=== PATIENT | male | born 1960 | race Caucasian/White ===

== ENCOUNTER 2018-02-08 10:30 | Observation (INO) | payer OTHER, SELFPAY ==
--- NOTE | 2018-02-08 11:32 | ER ---
Nurse's Notes [facility] Name: Ron Aguillon Age: 57 yrs Sex: Male : 1960 Arrival Date: 02/08/2018 Time: 10:32 Bed Waiting Private MD: Ike Dhillon R Diagnosis: Cellulitis of left lower limb;Cellulitis of right lower limb ED Course: 02/08 10:32 Patient arrived in ED. as 10:33 Ike Dhillon MD is Private Physician. as 11:31 Ike Dhillon MD is Hospitalizing Provider. ph Administered Medications: No medications were administered Outcome: 11:31 Decision to Hospitalize by Provider. ph 11:31 Patient left the ED. ph Signatures: Carol Ponce Patricia, RN RN ph
[2018-02-08 13:20] LABS: Absolute Lymphocytes (CBC) 1.7 K/uL (0.7-4.9); Absolute Monocytes 0.7 K/uL (0.1-1.3); Absolute Neutrophil 4.4 K/uL (1.8-8.0); Basophils % 0.8 % (0-1.3); Eosinophils % 2.4 % (0-4.4); Hematocrit 43.8 % (39.6-49.0); Lymphocytes % 24.1 % (15.3-44.8); MCH 24.1 pg (27.0-35.0); MCV 77.1 fL (80-100); MPV 7.4 fL (7.6-11.3); Monocytes % 9.9 % (3.3-12.3); RBC Red Blood Cell Count 5.68 M/uL (4.33-5.43)
[2018-02-08 13:31] LABS: Urine Appearance CLEAR; Urine Bilirubin NEGATIVE (NEG); Urine Blood NEGATIVE (NEG); Urine Color YELLOW; Urine Glucose NEGATIVE (NEG); Urine Protein NEGATIVE (NEG); Urine Specific Gravity 1.015 (1.005-1.030); Urine Urobilinogen 0.2 mg/dL (0.2-1.0)
[2018-02-08 13:40] LABS: ALT/SGPT 36 U/L (12-78); AST/SGOT 23 U/L (15-37); Albumin 3.6 g/dL (3.4-5.0); Alkaline Phosphatase 68 U/L (45-117); BUN Blood Urea Nitrogen 11 mg/dL (7-18); Bicarbonate 31 mmol/L (21-32); Bilirubin Total 0.3 mg/dL (0.2-1.0); Glucose Level 84 mg/dL (74-106); NT PRO-BNP 381 pg/mL (<125); Potassium 3.9 mmol/L (3.5-5.1); Protein, Total 7.8 g/dL (6.4-8.2); Sodium Level 140 mmol/L (136-145)
[2018-02-08 13:40] LABS: Urine Bacteria NONE SEEN /HPF (NONE SEEN); Urine RBC NONE SEEN /HPF (NONE SEEN)
[2018-02-08 13:41] LABS: Urine Culture Reflex Order NOT NEEDED
[2018-02-08 13:43] LABS: Urine White Blood Cell Casts OK
[2018-02-08 13:44] LABS: Anisocytosis 1+; Blood Morphology Comment NOTED (NOT SEEN); Platelet Estimate ADEQ
[2018-02-08 14:58] VITALS: BMI 32.2
--- NOTE | 2018-02-08 15:46 | ECHO ---
HEIGHT: 5 ft 8 in WEIGHT: 212 lb 0 oz DATE OF STUDY: 02/08/[address]: Ike Dhillon MD 2-DIMENSIONAL: YES M.MODE: YES DOPPLER: YES COLOR FLOW: YES TDS: YES PORTABLE: NO DEFINITY: NO BUBBLE STUDY: NO DIAGNOSIS: CELLULITUS CARDIAC HISTORY: CATHERIZATION: NO SURGERY: NO PROSTHETIC VALVE: NO PACEMAKER: NO MEASUREMENTS (cm) DIASTOLIC (NORMALS) SYSTOLIC (NORMALS) IVSd 1.1 (0.6-1.2) LA Diam 3.1 (1.9-4.0) LVEF 70% LVIDd 4.4 (3.5-5.7) LVIDs 2.7 (2.0-3.5) %FS 40% LVPWd 1.2 (0.6-1.2) Ao Diam 3.4 (2.0-3.7) 2 DIMENSIONAL ASSESSMENT: RIGHT ATRIUM: NORMAL LEFT ATRIUM: NORMAL RIGHT VENTRICLE: NORMAL LEFT VENTRICLE: NORMAL TRICUSPID VALVE: NORMAL MITRAL VALVE: NORMAL PULMONIC VALVE: NORMAL AORTIC VALVE: NORMAL PERICARDIAL EFFUSION: NONE AORTIC ROOT: NORMAL LEFT VENTRICULAR WALL MOTION: NORMAL DOPPLER/COLOR FLOW: MILD TRICUSPID REGURGITATION. COMMENTS: MILD TRICUSPID REGURGITATION, NORMAL VARIANT. NORMAL LEFT VENTRICULAR SIZE AND FUNCTION. NO WALL MOTION ABNORMALITY. NO EFFUSION. TECHNOLOGIST: Shaq IGLESIAS
[2018-02-08] MEDS ORDERED: PNEUMOCOCCAL VACCINE 0.5 ML IMVAC ONE (16:00)
[2018-02-08] MEDS: ALBUTEROL 2.5 MG/3 ML NEB SOL NEB SCH ×2 (16:00→20:33)
[2018-02-08] MEDS: FUROSEMIDE 40 MG/4 ML VIAL IV SCH (20:11)
[2018-02-08] MEDS ORDERED: CEFTRIAXONE 1 GM/NS 50 ML 1 GM/50 ML BAG IV ONE (22:04)
[2018-02-08] MEDS ORDERED: CEFTRIAXONE/SWI 1gm 1 GM/10 ML SYR IV SCH (23:00)
[2018-02-08] MEDS ORDERED: CEFTRIAXONE/SWI 1gm 1 GM/10 ML SYR IV ONE (23:00)
[2018-02-09] MEDS: PANTOPRAZOLE 40MG TABLET PO SCH (06:20)
[2018-02-09] MEDS: ALBUTEROL 2.5 MG/3 ML NEB SOL NEB SCH ×4 (07:50→20:31)
[2018-02-09] MEDS ORDERED: POTASSIUM CL SA 10 MEQ TAB PO ONE (08:22)
[2018-02-09] MEDS: POTASSIUM CL SA 10 MEQ TAB PO SCH (08:30)
[2018-02-09] MEDS: HYDRALAZINE HCL 25 MG TABLET PO SCH ×4 (08:30→22:11)
[2018-02-09] MEDS: ASPIRIN 81 MG CHEWABLE TABLET PO SCH (08:30)
--- NOTE | 2018-02-09 10:44 | RAD REPORT ---
EXAM DESCRIPTION: USExtrem Venous W Compress Bil02/09/2018 9:54 am CLINICAL HISTORY: Bilateral leg swelling COMPARISON: none FINDINGS: The common femoral, superficial femoral, popliteal and posterior tibial veins bilaterally are compressible and demonstrate augmentation. Doppler demonstrates good flow. A 1.8 centimeter Todd's cyst is present within the right knee IMPRESSION: No evidence of deep venous thrombosis involving either lower extremity. 1.8 centimeter right Todd's cyst
[2018-02-09] MEDS: FUROSEMIDE 40 MG/4 ML VIAL IV SCH ×2 (10:45→21:00)
[2018-02-09] MEDS ORDERED: ENOXAPARIN 30 MG/0.3 ML SQ ONE (18:50)
[2018-02-09 20:36] VITALS: O2SAT 96
--- NOTE | 2018-02-09 22:48 | HP ---
Date of Admission: 02/08/2018 Chief Complaint: Swelling of the legs and redness of the legs. History Of Present Illness: A 57-year-old male who was seen 2 days prior to admission with swelling of the legs. He was given a higher dose of Lasix and was re-checked on the day of admission when he was found to have increased swelling as well as redness compatible with bilateral leg cellulitis. Th e patient is admitted as he is not responding to oral furosemide. The patient denied any history of chest pain. He has shortness of breath from COPD for which he is o n oxygen as well as Proventil. The patient has multiple medical problems that will be listed below. Past Medical History: Positive for history of smoking-related COPD, type 2 diabetes, history of gout . Past Surgical History: Positive for pyloric cyst removal. Family History: Positive for diabetes, stroke, and brain aneurysm. Personal History: Currently he does not smoke. He has no known allergies, however, he admits to sorin mathews on a regular basis. Review of Systems: The patient denied any chest pain. Physical Examination: General: Revealed a 57-year-old male with mild audible wheezing. Vital Signs: Normal. HEENT: Negative. Neck: Supple. JVD negative. Chest: Scattered wheezes. Heart: Regular. Abdomen: Soft, nontender. Extremities: Bilateral pedal edema with redness compatible with cellulitis. Laboratory Data: White count 7.1. Platelet count normal. Chem profile; BNP 381, hemoglobin A1c nor mal. Assessment: 1.Cellulitis, both legs. 2.Swelling, both legs. 3.History of diabetes. 4.Chronic obstructive pulmonary disease. Plan: The patient is receiving IV Lasix and he has lost fluid already. His redness is better. He i s on Rocephin, which will be continued. It is not clear why patient has so much swelling, possible d oes include cor pulmonale from COPD. However, he will be checked for venous disease of both legs. CECY/FAY Voice ID: [id number]
[2018-02-09] MEDS: CODEINE 30MG/APAP 300MG TAB PO PRN (23:05)
[2018-02-10] MEDS: PANTOPRAZOLE 40MG TABLET PO SCH (05:33)
[2018-02-10] MEDS: CODEINE 30MG/APAP 300MG TAB PO PRN (05:33)
[2018-02-10 06:48] LABS: BUN Blood Urea Nitrogen 13 mg/dL (7-18); Bicarbonate 33 mmol/L (21-32); Glucose Level 95 mg/dL (74-106); Potassium 3.8 mmol/L (3.5-5.1); Sodium Level 139 mmol/L (136-145)
[2018-02-10 07:07] LABS: Thyroid Stimulating Hormone 4.06 uIU/mL (0.360-3.740)
[2018-02-10] MEDS: ALBUTEROL 2.5 MG/3 ML NEB SOL NEB SCH (07:59)
[2018-02-10] MEDS: POTASSIUM CL SA 10 MEQ TAB PO SCH (09:21)
[2018-02-10] MEDS: ASPIRIN 81 MG CHEWABLE TABLET PO SCH (09:21)
[2018-02-10 09:55] VITALS: BP 121/59; TEMP 98
[2018-02-10] MEDS ORDERED: PNEUMOCOCCAL VACCINE 0.5 ML IMVAC ONE (11:00)
== END 2018-02-10 11:25 | disposition home or self-care (01) ==
LOC: ER 10:30 → ERHOLD 10:31 → 4TH 11:37
PROVIDERS: ADMIT Internal Medicine; ATTEND Internal Medicine
DX: L03.116 Cellulitis of left lower limb (principal); L03.115 Cellulitis of right lower limb; J44.9 Chronic obstructive pulmonary disease, unspecified; E11.9 Type 2 diabetes mellitus without complications; M10.9 Gout, unspecified; Z23 Encounter for immunization
CPT/HCPCS: 36415; 80048; 80053; 81001; 83036; 83880; 84439; 84443; 85025; 87070; 87205; 90670; 93306; 93970; 94640; G0009; G0378; J0696; J1650

== ENCOUNTER 2018-06-04 08:16 | Emergency (ER) | payer OTHER, SELFPAY ==
[2018-06-04 09:55] LABS: Absolute Monocytes 0.6 K/uL (0.1-1.3); Absolute Neutrophil 4.2 K/uL (1.8-8.0); Basophils % 0.4 % (0-1.3); Eosinophils % 3.8 % (0-4.4); Hematocrit 45.7 % (39.6-49.0); Lymphocytes % 16.4 % (15.3-44.8); MPV 7.5 fL (7.6-11.3); Monocytes % 10.5 % (3.3-12.3); RBC Red Blood Cell Count 4.78 M/uL (4.33-5.43)
--- NOTE | 2018-06-04 09:55 | RAD REPORT ---
EXAM DESCRIPTION: Fer Single View06/04/2018 8:59 am CLINICAL HISTORY: Fever/infection COMPARISON: none FINDINGS: The lungs appear clear of acute infiltrate. The heart is normal size IMPRESSION: No acute abnormalities displayed
[2018-06-04 09:57] LABS: Protime INR 1.03
[2018-06-04 10:15] LABS: ALT/SGPT 32 U/L (12-78); AST/SGOT 27 U/L (15-37); Albumin 4.1 g/dL (3.4-5.0); Alkaline Phosphatase 84 U/L (45-117); BUN Blood Urea Nitrogen 26 mg/dL (7-18); Bicarbonate 36 mmol/L (21-32); Bilirubin Direct < 0.1 mg/dL (0-0.2); Bilirubin Total 0.2 mg/dL (0.2-1.0); Creatine Phosphokinase 95 U/L (39-308); Glucose Level 103 mg/dL (74-106); Potassium 4.3 mmol/L (3.5-5.1); Protein, Total 8.5 g/dL (6.4-8.2); Sodium Level 136 mmol/L (136-145)
[2018-06-04] MEDS ORDERED: VANCOMYCIN 1 GM/250 ML BAG ONE (10:22)
[2018-06-04] MEDS ORDERED: IPRATROPIUM BROM 0.5MG/2.5ML ONE (10:53)
[2018-06-04] MEDS ORDERED: ALBUTEROL 2.5 MG/3 ML NEB SOL ONE (10:53)
[2018-06-04 11:04] LABS: Urine Blood NEGATIVE (NEG); Urine Glucose NEGATIVE (NEG); Urine Protein NEGATIVE (NEG); Urine Specific Gravity 1.005 (1.005-1.030)
--- NOTE | 2018-06-04 12:08 | ER ---
Nurse's Notes [facility] Name: Ron Aguillon Age: 57 yrs Sex: Male : 1960 Arrival Date: 06/04/2018 Time: 08:19 Bed 19 Private MD: Ike Dhillon R Diagnosis: Cellulitis of left lower limb;Cellulitis of right lower limb Presentation: 06/04 08:22 Presenting complaint: Patient states: "I have cellulitis on both my legs and I am being aa5 treated by and it's not getting better". Transition of care: patient was not received from another setting of care. Onset of symptoms was 2018. Risk Assessment: Do you want to hurt yourself or someone else? Patient reports no desire to harm self or others. Care prior to arrival: None. 08:22 Method Of Arrival: Ambulatory aa5 08:22 Acuity: KWAME 3 aa5 10:41 Initial Sepsis Screen: Does the patient meet any 2 criteria? No. Patient's initial tw2 sepsis screen is negative. Does the patient have a suspected source of infection? Yes: Skin breakdown/wound. Historical: - Allergies: 08:24 No Known Allergies; aa5 - PMHx: 08:24 Diabetes-diet controlled; COPD; aa5 - PSHx: 08:24 None; aa5 - Immunization history:: Adult Immunizations unknown. - Social history:: Smoking status: Patient uses tobacco products, denies chronic smoking, but will smoke occasionally. - Ebola Screening: : No symptoms or risks identified at this time. Screenin:32 Abuse screen: Denies threats or abuse. Nutritional screening: No deficits noted. tw2 Tuberculosis screening: No symptoms or risk factors identified. Fall Risk None identified. Assessment: 08:25 General: Appears in no apparent distress. unkempt, Behavior is calm, cooperative, tw2 appropriate for age, Smells of dirty animals. Pain: Denies pain. Neuro: Level of Consciousness is awake, alert, obeys commands, Oriented to person, place, time, situation. Cardiovascular: Heart tones S1 S2 Capillary refill < 3 seconds Patient's skin is warm and dry. Respiratory: Airway is patent Respiratory effort is even, unlabored, Respiratory pattern is regular, symmetrical, Breath sounds are clear bilaterally. GI: No signs and/or symptoms were reported involving the gastrointestinal system. Abdomen is round non-distended, Bowel sounds present X 4 quads. : No signs and/or symptoms were reported regarding the genitourinary system. EENT: No signs and/or symptoms were reported regarding the EENT system. Derm: redness and swelling noted to b/l LE, pt reports cellulitis that has not improved. Musculoskeletal: Range of motion: intact in all extremities. 09:30 Reassessment: Patient appears in no apparent distress at this time. No changes from tw2 previously documented assessment. Patient and/or family updated on plan of care and expected duration. Pain level reassessed. Patient is alert, oriented x 3, equal unlabored respirations, skin warm/dry/pink. 10:39 Reassessment: Patient appears in no apparent distress at this time. No changes from tw2 previously documented assessment. Patient and/or family updated on plan of care and expected duration. Pain level reassessed. Patient is alert, oriented x 3, equal unlabored respirations, skin warm/dry/pink. 11:35 Reassessment: Patient appears in no apparent distress at this time. No changes from tw2 previously documented assessment. Patient and/or family updated on plan of care and expected duration. Pain level reassessed. Patient is alert, oriented x 3, equal unlabored respirations, skin warm/dry/pink. 12:25 Reassessment: Patient appears in no apparent distress at this time. No changes from tw2 previously documented assessment. Patient and/or family updated on plan of care and expected duration. Pain level reassessed. Patient is alert, oriented x 3, equal unlabored respirations, skin warm/dry/pink. Vital Signs: 08:24 BP 147 / 87; Pulse 117; Resp 18 S; Temp 97.7(TE); Pulse Ox 91% on R/A; Weight 95.25 kg aa5 (R); Height 5 ft. 8 in. (172.72 cm) (R); Pain 3/10; 09:30 BP 139 / 69; Pulse 92; Resp 17; Pulse Ox 95% on R/A; tw2 10:38 BP 113 / 67; Pulse 94; Resp 17; Pulse Ox 95% on R/A; tw2 11:35 BP 123 / 64; Pulse 79; Resp 17; Pulse Ox 100% on R/A; tw2 12:24 BP 129 / 74; Pulse 92; Resp 17; Pulse Ox 100% on R/A; tw2 08:24 Body Mass Index 31.93 (95.25 kg, 172.72 cm) aa5 ED Course: 08:19 Patient arrived in ED. as 08:19 Ike Dhillon MD is Private Physician. as 08:20 [facility]int[facility]C [facility]. snw 08:20 Carson Liu MD is Attending Physician. snw 08:22 Arm band placed on. aa5 08:23 Triage completed. aa5 08:31 Kandice Camacho RN is Primary Nurse. tw2 08:32 Bed in low position. Call light in reach. Adult w/ patient. Pulse ox on. NIBP on. tw2 08:51 X-ray completed. Portable x-ray completed in exam room. Patient tolerated procedure jb2 well. 08:54 Chest Single View XRAY In Process Unspecified. EDMS 11:30 Inserted saline lock: 20 gauge in right antecubital area, using aseptic technique. tw2 ,using aseptic technique. per MARCEL De Anda Blood collected. 12:07 Ike Dhillon MD is Referral Physician. snw 12:25 No provider procedures requiring assistance completed. tw2 12:30 IV discontinued, intact, bleeding controlled, No redness/swelling at site. Pressure tw2 dressing applied. Administered Medications: 10:19 Drug: vancoMYCIN 1 grams Route: IVPB; Infused Over: 2 hrs; Site: right antecubital; tw2 12:24 Follow up: Response: No adverse reaction; IV Status: Completed infusion tw2 10:46 Drug: Albuterol - atroVENT (3:1) (2.5 mg - 0.5 mg) 3 ml Route: Nebulizer; tw2 12:24 Follow up: Response: No adverse reaction tw2 Outcome: 12:07 Discharge ordered by . snw 12:30 Discharged to home ambulatory, with family. tw2 12:30 Condition: stable 12:30 Discharge instructions given to patient, family, Instructed on discharge instructions, follow up and referral plans. medication usage, Demonstrated understanding of instructions, follow-up care, medications, Prescriptions given X 1. 12:30 Patient left the ED. tw2 Signatures: Dispatcher [employer] EDMS Nikky Cintron FNP-C GLOBAL CEO-Csnw Julian Durham jb2 Carol Ponce Audri, RN RN aa5 Kandice Camacho RN RN tw2
--- NOTE | 2018-06-04 12:08 | EDPHYS ---
Physician Documentation [facility] Name: Ron Aguillon Age: 57 yrs Sex: Male : 1960 Arrival Date: 06/04/2018 Time: 08:19 Bed 19 Private MD: Ike Dhillon R ED Physician Carson Liu HPI: 06/04 09:40 This 57 yrs old Male presents to ER via Ambulatory with complaints of Leg snw Swelling. 09:40 The patient presents with cellulitis of the bilateral lower extremities. Description: snw erythematous, warm. Onset: The symptoms/episode began/occurred gradually, and became persistent. Possible cause(s): unknown. Associated signs and symptoms: The patient has no apparent associated signs or symptoms. Severity of symptoms: At their worst the symptoms were moderate. The patient has experienced similar episodes in the past, multiple times. The patient has been recently seen by a physician: the patient's primary care provider, Dr. Dhillon. Pt just finished Keflex for similar s/s 2 weeks ago. Historical: - Allergies: 08:24 No Known Allergies; aa5 - PMHx: 08:24 Diabetes-diet controlled; COPD; aa5 - PSHx: 08:24 None; aa5 - Immunization history:: Adult Immunizations unknown. - Social history:: Smoking status: Patient uses tobacco products, denies chronic smoking, but will smoke occasionally. - Ebola Screening: : No symptoms or risks identified at this time. ROS: 09:36 Constitutional: Negative for fever, chills, and weight loss, Eyes: Negative for injury, snw pain, redness, and discharge, ENT: Negative for injury, pain, and discharge, Neck: Negative for injury, pain, and swelling, Cardiovascular: Negative for chest pain, palpitations, and edema, Respiratory: Negative for shortness of breath, cough, wheezing, and pleuritic chest pain, Abdomen/GI: Negative for abdominal pain, nausea, vomiting, diarrhea, and constipation, Back: Negative for injury and pain, : Negative for injury, bleeding, discharge, and swelling, MS/Extremity: Negative for injury and deformity, Neuro: Negative for headache, weakness, numbness, tingling, and seizure, Psych: Negative for depression, anxiety, suicide ideation, homicidal ideation, and hallucinations. 09:36 Skin: Positive for cellulitis, of the bilateral lower extremities. Exam: 09:23 Constitutional: This is a well developed, well nourished patient who is awake, alert, snw and in no acute distress. Head/Face: Normocephalic, atraumatic. Eyes: Pupils equal round and reactive to light, extra-ocular motions intact. Lids and lashes normal. Conjunctiva and sclera are non-icteric and not injected. Cornea within normal limits. Periorbital areas with no swelling, redness, or edema. ENT: Nares patent. No nasal discharge, no septal abnormalities noted. Tympanic membranes are normal and external auditory canals are clear. Oropharynx with no redness, swelling, or masses, exudates, or evidence of obstruction, uvula midline. Mucous membranes moist. Neck: Trachea midline, no thyromegaly or masses palpated, and no cervical lymphadenopathy. Supple, full range of motion without nuchal rigidity, or vertebral point tenderness. No Meningismus. Chest/axilla: Normal chest wall appearance and motion. Nontender with no deformity. No lesions are appreciated. Cardiovascular: Regular rate and rhythm with a normal S1 and S2. No gallops, murmurs, or rubs. Normal PMI, no JVD. No pulse deficits. Respiratory: Lungs have equal breath sounds bilaterally, clear to auscultation and percussion. No rales, rhonchi or wheezes noted. No increased work of breathing, no retractions or nasal flaring. Abdomen/GI: Soft, non-tender, with normal bowel sounds. No distension or tympany. No guarding or rebound. No evidence of tenderness throughout. Back: No spinal tenderness. No costovertebral tenderness. Full range of motion. MS/ Extremity: Pulses equal, no cyanosis. Neurovascular intact. Full, normal range of motion. Neuro: Awake and alert, GCS 15, oriented to person, place, time, and situation. Cranial nerves II-XII grossly intact. Motor strength 5/5 in all extremities. Sensory grossly intact. Cerebellar exam normal. Normal gait. Psych: Awake, alert, with orientation to person, place and time. Behavior, mood, and affect are within normal limits. 09:23 Skin: Appearance: normal except for affected area, cellulitis, that is mild, well demarcated, on the medial aspect of right and left calf and right and left lopez. Vital Signs: 08:24 BP 147 / 87; Pulse 117; Resp 18 S; Temp 97.7(TE); Pulse Ox 91% on R/A; Weight 95.25 kg aa5 (R); Height 5 ft. 8 in. (172.72 cm) (R); Pain 3/10; 09:30 BP 139 / 69; Pulse 92; Resp 17; Pulse Ox 95% on R/A; tw2 10:38 BP 113 / 67; Pulse 94; Resp 17; Pulse Ox 95% on R/A; tw2 11:35 BP 123 / 64; Pulse 79; Resp 17; Pulse Ox 100% on R/A; tw2 12:24 BP 129 / 74; Pulse 92; Resp 17; Pulse Ox 100% on R/A; tw2 08:24 Body Mass Index 31.93 (95.25 kg, 172.72 cm) aa5 MDM: 08:31 Patient medically screened. snw 12:08 Data reviewed: vital signs, nurses notes. Data interpreted: Pulse oximetry: on room air snw is 91 %. Interpretation: hypoxia. Plan: will initiate a nebulizer treatment. Counseling: I had a detailed discussion with the patient and/or guardian regarding: the historical points, exam findings, and any diagnostic results supporting the discharge/admit diagnosis, lab results, the need for outpatient follow up, to return to the emergency department if symptoms worsen or persist or if there are any questions or concerns that arise at home. Special discussion: Based on the history and exam findings, there is no indication for further emergent testing or inpatient evaluation. I discussed with the patient/guardian the need to see the primary care provider for further evaluation of the symptoms. 06/04 08:33 Order name: Basic Metabolic Panel w 06/04 08:33 Order name: Blood Culture Adult (2) snw 06/04 08:33 Order name: CBC with Diff; Complete Time: 09:58 snw 06/04 08:33 Order name: CPK; Complete Time: 10:34 snw 06/04 08:33 Order name: Lactate; Complete Time: 10:38 snw 06/04 08:33 Order name: LFT's; Complete Time: 10:34 snw 06/04 08:33 Order name: Procalcitonin; Complete Time: 10:34 snw 06/04 08:33 Order name: Protime (+inr); Complete Time: 09:58 snw 06/04 08:33 Order name: Ptt, Activated; Complete Time: 09:58 snw 06/04 08:33 Order name: Chest Single View XRAY; Complete Time: 09:58 snw 06/04 08:33 Order name: Basic Metabolic Panel; Complete Time: 10:34 EDMS 06/04 08:33 Order name: Blood Culture EDMS 06/04 09:53 Order name: Urine Dipstick--Ancillary (enter results); Complete Time: 11:18 eb 06/04 08:33 Order name: Cardiac monitoring; Complete Time: 10:19 snw 06/04 08:33 Order name: EKG - Nurse/Tech; Complete Time: 10:19 snw 06/04 08:33 Order name: IV Saline Lock - Large Bore; Complete Time: 10:19 snw 06/04 08:33 Order name: Labs collected and sent; Complete Time: 10:19 snw 06/04 08:33 Order name: O2 Per Protocol; Complete Time: 10:19 snw 06/04 08:33 Order name: O2 Sat Monitoring; Complete Time: 10:19 snw 06/04 08:33 Order name: Urine Dipstick-Ancillary (obtain specimen); Complete Time: 09:49 snw Administered Medications: 10:19 Drug: vancoMYCIN 1 grams Route: IVPB; Infused Over: 2 hrs; Site: right antecubital; tw2 12:24 Follow up: Response: No adverse reaction; IV Status: Completed infusion tw2 10:46 Drug: Albuterol - atroVENT (3:1) (2.5 mg - 0.5 mg) 3 ml Route: Nebulizer; tw2 12:24 Follow up: Response: No adverse reaction tw2 Disposition: 06/04/18 12:07 Discharged to Home. Impression: Cellulitis of left lower limb, Cellulitis of right lower limb. - Condition is Stable. - Discharge Instructions: Cellulitis, Adult, Edema, Heat Therapy. - Prescriptions for Clindamycin HCl 300 mg Oral Capsule - take 1 capsule by ORAL route every 6 hours for 10 days; 40 capsule. - Medication Reconciliation Form, Thank You Letter, Antibiotic Education, Prescription Opioid Use form. - Follow up: Ike Dhillon MD; When: 1 - 2 days; Reason: Recheck today's complaints, Continuance of care, Re-evaluation by your physician. Follow up: Emergency Department; When: As needed; Reason: Worsening of condition. Addendum: 06/06/2018 07:36 Co-signature as Attending Physician, Carson Liu MD. r n Signatures: Dispatcher [employer] EDMS Nikky Cintron, FINANCIAL ADVISOR-C FINANCIAL ADVISOR-Csnw aCrson Liu MD MD rn Calderon, Audri, RN RN aa5 Kandice Camacho RN RN tw2 Corrections: (The following items were deleted from the chart) 06/04 10:19 08:33 Accucheck ordered. snw tw2 12:30 12:07 06/04/2018 12:07 Discharged to Home. Impression: Cellulitis of left lower limb; tw2 Cellulitis of right lower limb. Condition is Stable. Forms are Medication Reconciliation Form, Thank You Letter, Antibiotic Education, Prescription Opioid Use. Follow up: Ike Dhillon; When: 1 - 2 days; Reason: Recheck today's complaints, Continuance of care, Re-evaluation by your physician. Follow up: Emergency Department; When: As needed; Reason: Worsening of condition. snw
[2018-06-04 12:41] VITALS: TEMP 97.7
[2018-06-04 12:46] VITALS: O2SAT 100
[2018-06-04 12:47] VITALS: BP 129/74
== END 2018-06-04 12:30 | disposition home or self-care (01) ==
LOC: ER 08:16
DX: L03.116 Cellulitis of left lower limb (principal); L03.115 Cellulitis of right lower limb; E11.9 Type 2 diabetes mellitus without complications; Z72.0 Tobacco use
CPT/HCPCS: 36415; 71045; 80048; 80076; 81003; 82550; 83605; 84145; 85025; 85610; 85730; 87040; 94640; 96365; 96366; 99284; J3370